=== PATIENT | male | born 1995 | race African-American/Black ===

== ENCOUNTER 2017-02-08 03:30 | Emergency (ER) | payer SELFPAY ==
[~2017-02-08] VITALS: Ht 162.6 cm; Wt 68.0 kg
[2017-02-08 03:59] VITALS: BP 118/76
== END 2017-02-08 04:13 | disposition home or self-care (01) ==
LOC: EMS 03:31 → EEVIPCON 03:31 → EMS 04:13
DX: S60.811A Abrasion of right wrist, initial encounter (principal); S60.511A Abrasion of right hand, initial encounter; F12.10 Cannabis abuse, uncomplicated; W18.30XA Fall on same level, unspecified, initial encounter; Y93.89 Activity, other specified; Y92.9 Unspecified place or not applicable; Y99.9 Unspecified external cause status
CPT/HCPCS: 99283